=== PATIENT | female | born 1950 | race African-American/Black ===

== ENCOUNTER 2017-03-01 09:10 | Outpatient (CLI) | payer OTHER ==
--- NOTE | 2017-03-01 10:47 | Mammography Report ---
Bilateral mammogram: Compared to 03/01/16. CAD study utilized. Findings: Predominance of adipose tissue bilaterally. Benign calcification right breast. Focal new ill-defined asymmetry mid left breast . Focal new calcification upper inner posterior left breast. Benign axillary nodes. Impression: Focal asymmetry left breast. Focal new calcifications left breast. Recommend spot magnification is seen a sonographic examination. BI-RADS CATEGORY: 0 = Needs additional imaging evaluation ACR BI-RADS MAMMOGRAPHIC CODES: 0 = Needs additional imaging evaluation; 1 = Negative; 2 = Benign; 3 = Probably benign; 4 = Suspicious; 5 = Malignant; 6 = Known biopsy-proven malignancy COMMENT: 1. Dense breast tissue, i.e., adenosis, fibrocystic changes, etc., may obscure an underlying neoplasm. 2. Approximately 10% of cancers are not detected with mammography. 3. A negative mammography report should not delay biopsy if a clinically suspicious mass is present. COMMENT: Patient follow-up letters are generated in [employer]. There is an
== END 2017-03-01 09:11 | disposition home or self-care (01) ==
LOC: MAMMO 09:10
PROVIDERS: ATTEND Family Medicine
DX: Z12.31 Encounter for screening mammogram for malignant neoplasm of breast (principal)
CPT/HCPCS: 77067; G0202